=== PATIENT | male | born 1985 | race African-American/Black ===

== ENCOUNTER 2017-06-29 13:42 | Emergency (ER) | END 2017-06-29 18:43 | disposition home or self-care (01) ==

== ENCOUNTER 2018-01-31 08:10 | Emergency (ER) | END 2018-01-31 09:21 | disposition home or self-care (01) ==

== ENCOUNTER 2018-03-21 09:39 | Emergency (ER) | END 2018-03-21 13:02 | disposition home or self-care (01) ==